=== PATIENT | female | born 1990 | race African-American/Black ===

== ENCOUNTER 2017-01-09 03:42 | Inpatient (IN) | payer MEDICAID ==
[~2017-01-09] VITALS: Ht 170.2 cm; Wt 104.3 kg
[2017-01-09] MEDS ORDERED: DEXT 5%/LR + PITOCIN 20UNITS/L 1,000 ML IV SCH (04:01)
[2017-01-09] MEDS ORDERED: LACTATED RINGERS 1,000 ML IV SCH (04:01)
[2017-01-09] MEDS ORDERED: METHYLERGONOVINE MALEATE 0.2 MG/ML IM PRN (04:15)
[2017-01-09] MEDS ORDERED: BUTORPHANOL TARTRATE 2 MG/ML VIAL IV PRN (04:15)
[2017-01-09] MEDS ORDERED: MISOPROSTOL 100MCG TABLET VG SCH (04:15)
[2017-01-09] MEDS ORDERED: CARBOPROST TROMETHAMINE 250 MCG/ML AMPUL IM PRN (04:15)
[2017-01-09] MEDS: BETAMETHASONE ACET/BETAMET 30 MG/5 ML VIAL IM SCH (05:39)
[2017-01-09] MEDS: LACTATED RINGERS 1,000 ML IV SCH ×2 (05:40→13:23)
[2017-01-09 05:52] LABS: BASOPHILS % 0.7 % (0.0-2.0); EOSINOPHILS % 0.6 % (0.0-5.0); HEMATOCRIT. 30.9 % (36.0-48.0); HEMOGLOBIN. 10.7 g/dL (12.0-16.0); LYMPHOCYTES % 28.6 % (20.0-50.0); MEAN CORPUSCULAR HEMOGLOBIN 32.3 pg (28.0-32.0); MEAN CORPUSCULAR VOLUME 93.3 fL (81.0-99.0); MEAN PLATELET VOLUME 8.4 fl (7.4-10.4); MONOCYTES % 5.3 % (2.0-8.0); NEUTROPHILS % 64.8 % (40.0-76.0); PLATELET 252 x1000/uL (130-400); RED BLOOD CELL COUNT 3.31 mill/uL (4.2-5.4); RED CELL DISTRIBUTION WIDTH 13.6 % (11.6-14.6)
[2017-01-09 05:57] LABS: PARTIAL THROMBOPLASTIN TIME 27.1 sec (24.0-34.0)
[2017-01-09] MEDS: MAGNESIUM 20 G PREMIX (L & D) 500 ML IV SCH ×2 (05:58→14:43)
[2017-01-09 07:18] LABS: CLARITY URINE CLEAR (CLEAR); COLOR URINE YELLOW (YELLOW); GLUCOSE URINE NEGATIVE (NEGATIVE); KETONES URINE NEGATIVE (NEGATIVE); LEUKOCYTE ESTERASE URINE 2+ (NEGATIVE); NITRITE URINE NEGATIVE (NEGATIVE); OCCULT BLOOD URINE NEGATIVE (NEGATIVE); PH URINE 6.5 (4.5-8.0); PROTEIN URINE NEGATIVE (NEGATIVE); SPECIFIC GRAVITY URINE 1.011 (1.005-1.030)
[2017-01-09] MEDS ORDERED: AMPICILLIN 2,000 MG in SODIUM CHLORIDE 0.9% 100 ML IV NR (07:24)
[2017-01-09 07:51] LABS: *AMPHETAMINES SCREEN URINE NEGATIVE (NEGATIVE); *BARBITURATES SCREEN URINE NEGATIVE (NEGATIVE); *BENZODIAZEPINES SCREEN URINE NEGATIVE (NEGATIVE); *COCAINE SCREEN URINE NEGATIVE (NEGATIVE); CANNABINOID URINE SCREEN NEGATIVE (NEGATIVE); METHADONE URINE SCREEN NEGATIVE (NEGATIVE); OPIATES URINE SCREEN NEGATIVE (NEGATIVE); PHENCYCLIDINE URINE SCREEN NEGATIVE (NEGATIVE)
[2017-01-09 08:03] LABS: HEPATITIS B SURFACE ANTIGEN NEGATIVE; RUBELLA IGG 121.9 IU/mL (4.99-10)
[2017-01-09] MEDS: AMPICILLIN 2,000 MG in SODIUM CHLORIDE 0.9% 100 ML IV SCH ×2 (15:21→21:02)
[2017-01-10 00:21] VITALS: BP 93/50
[2017-01-10] MEDS: MAGNESIUM 20 G PREMIX (L & D) 500 ML IV SCH (00:21)
[2017-01-10] MEDS: AMPICILLIN 2,000 MG in SODIUM CHLORIDE 0.9% 100 ML IV SCH ×3 (02:53→15:40)
[2017-01-10] MEDS: LACTATED RINGERS 1,000 ML IV SCH (02:54)
[2017-01-10] MEDS: BETAMETHASONE ACET/BETAMET 30 MG/5 ML VIAL IM SCH (05:50)
[2017-01-10] MEDS ORDERED: AZITHROMYCIN 500 MG in DEXT 5% WATER 250 ML IV SCH (06:00)
[2017-01-11] MEDS: AMPICILLIN 2,000 MG in SODIUM CHLORIDE 0.9% 100 ML IV SCH ×4 (02:56→21:06)
[2017-01-11] MEDS: AZITHROMYCIN 500MG in DEXTROSE 5% WATER 250ML IV SCH (07:02)
[2017-01-11] MEDS ORDERED: LACTATED RINGERS 1,000 ML IV SCH (14:15)
[2017-01-11 19:32] LABS: BASOPHILS % 0.1 % (0.0-2.0); EOSINOPHILS % 0.1 % (0.0-5.0); HEMATOCRIT. 26.5 % (36.0-48.0); HEMOGLOBIN. 9.1 g/dL (12.0-16.0); LYMPHOCYTES % 12.8 % (20.0-50.0); MEAN CORPUSCULAR HEMOGLOBIN 31.9 pg (28.0-32.0); MEAN CORPUSCULAR VOLUME 93.1 fL (81.0-99.0); MEAN PLATELET VOLUME 8.2 fl (7.4-10.4); MONOCYTES % 7.1 % (2.0-8.0); NEUTROPHILS % 79.9 % (40.0-76.0); PLATELET 221 x1000/uL (130-400); RED BLOOD CELL COUNT 2.85 mill/uL (4.2-5.4); RED CELL DISTRIBUTION WIDTH 13.3 % (11.6-14.6)
[2017-01-12] MEDS: AMPICILLIN 2,000 MG in SODIUM CHLORIDE 0.9% 100 ML IV SCH ×2 (03:14→09:27)
[2017-01-12] MEDS: AZITHROMYCIN 500MG in DEXTROSE 5% WATER 250ML IV SCH (06:39)
== END 2017-01-12 13:20 | disposition left against medical advice (07) | DRG 566 ==
LOC: OBSVTOIN 03:42 → L&D 03:42
PROVIDERS: ADMIT Obstetrics & Gynecology; ATTEND Obstetrics & Gynecology
DX: O42.913 Preterm premature rupture of membranes, unspecified as to length of time between rupture and onset of labor, third trimester (principal); O46.92 Antepartum hemorrhage, unspecified, second trimester; Z3A.25 25 weeks gestation of pregnancy
CPT/HCPCS: 36415; 76805; 76815; 80305; 81001; 83735; 85025; 85610; 85730; 86592; 86703; 86762; 86850; 86900; 87340; 96360; 96361; 96365; 96366; 96372; 99281; G0378; J0290; J0456; J0702; J3475; J7050; J7060; J7120; A4315

== ENCOUNTER 2017-03-05 02:38 | Observation (INO) | payer MEDICAID ==
[~2017-03-05] VITALS: Ht 170.2 cm; Wt 91.0 kg
[2017-03-05 03:13] LABS: BASOPHILS % 0.4 % (0.0-2.0); HEMATOCRIT. 30.6 % (36.0-48.0); HEMOGLOBIN. 10.2 g/dL (12.0-16.0); LYMPHOCYTES % 29.5 % (20.0-50.0); MEAN CORPUSCULAR HEMOGLOBIN 30.3 pg (28.0-32.0); MEAN CORPUSCULAR VOLUME 90.3 fL (81.0-99.0); MEAN PLATELET VOLUME 8.1 fl (7.4-10.4); NEUTROPHILS % 62.1 % (40.0-76.0); PLATELET 206 x1000/uL (130-400); RED BLOOD CELL COUNT 3.38 mill/uL (4.2-5.4)
[2017-03-05 03:22] LABS: INR 0.9; PARTIAL THROMBOPLASTIN TIME 26.4 sec (23.4-31.0); PROTHROMBIN TIME 9.8 sec (9.4-11.6)
[2017-03-05 03:32] LABS: CARBON DIOXIDE 25 mEq/L (21-32); CHLORIDE 108 mEq/L (98-107); CREATINE KINASE 35 IU/L (26-192); TROPONIN I < 0.02 ng/mL (0.00-0.04)
[2017-03-05 03:45] LABS: B-HCG QUANTITATIVE 4824 mIU/mL (<3)
[2017-03-05 04:49] LABS: CLARITY URINE CLEAR (CLEAR); COLOR URINE YELLOW (YELLOW); GLUCOSE URINE NEGATIVE (NEGATIVE); KETONES URINE NEGATIVE (NEGATIVE); LEUKOCYTE ESTERASE URINE 1+ (NEGATIVE); NITRITE URINE NEGATIVE (NEGATIVE); OCCULT BLOOD URINE NEGATIVE (NEGATIVE); PH URINE 6.5 (4.5-8.0); PROTEIN URINE NEGATIVE (NEGATIVE); SPECIFIC GRAVITY URINE 1.015 (1.005-1.030)
[2017-03-05 05:27] LABS: *AMPHETAMINES SCREEN URINE NEGATIVE (NEGATIVE); *BARBITURATES SCREEN URINE NEGATIVE (NEGATIVE); *BENZODIAZEPINES SCREEN URINE NEGATIVE (NEGATIVE); *COCAINE SCREEN URINE NEGATIVE (NEGATIVE); CANNABINOID URINE SCREEN NEGATIVE (NEGATIVE); METHADONE URINE SCREEN NEGATIVE (NEGATIVE); OPIATES URINE SCREEN NEGATIVE (NEGATIVE); PHENCYCLIDINE URINE SCREEN NEGATIVE (NEGATIVE)
[2017-03-05 07:04] VITALS: BP 120/68
== END 2017-03-05 08:30 | disposition left against medical advice (07) ==
LOC: ER 02:50 → L&D 08:01
PROVIDERS: ADMIT Specialist; ATTEND Specialist
DX: O26.893 Other specified pregnancy related conditions, third trimester (principal); R00.2 Palpitations; O23.43 Unspecified infection of urinary tract in pregnancy, third trimester; Z3A.33 33 weeks gestation of pregnancy
CPT/HCPCS: 36415; 80053; 80305; 81001; 82550; 84443; 84484; 84702; 85025; 85610; 85730; 86850; 86900; 86901; 93005; 99284; G0378

== ENCOUNTER 2023-04-24 11:55 | Emergency (ER) | payer MEDICAID, MEDICARE ==
[~2023-04-24] VITALS: Ht 167.6 cm; Wt 100.0 kg
[2023-04-24 12:03] VITALS: O2SAT 100
[2023-04-24 13:15] VITALS: TEMP 98.8
[2023-04-24] MEDS ORDERED: IBUPROFEN 800MG TABLET PO ONE (13:15)
[2023-04-24] MEDS ORDERED: CYCLOBENZAPRINE 10MG TABLET PO ONE (13:15)
[2023-04-24] MEDS ORDERED: ACETAMINOPHEN 325MG TABLET PO ONE (13:15)
[2023-04-24] MEDS ORDERED: LIDOCAINE 5% PATCH TOP SCH (13:15)
[2023-04-24 13:30] VITALS: PULSE 79
[2023-04-24] MEDS ORDERED: IBUPROFEN 400MG TABLET PO SCH (13:30)
[2023-04-24 14:24] VITALS: BP 127/85; RESP 16
== END 2023-04-24 17:35 | disposition left against medical advice (07) ==
LOC: ER 11:55
DX: M79.604 Pain in right leg (principal)
CPT/HCPCS: 99281